=== PATIENT | female | born 2005 | race Two or more races ===

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

== ENCOUNTER 2025-01-02 11:18 | Emergency (ER) | payer MEDICAID, SELFPAY ==
[2025-01-02 11:47] VITALS: BP 106/73; PULSE 106; RESP 18; TEMP 38.2; O2SAT 97; BMI 17.6
--- NOTE | 2025-01-02 11:52 | PD.EDDENTL ---
ED Dental RME/HPI General Chief complaint: Dental/Oral/Throat Stated complaint: SORE THROAT Time Seen by Provider: 01/02/25 11:24 Arrival date/time: 01/02/25 11:18 RME / HPI RME / HPI Narrative: 19-year-old female patient came in for evaluation regarding worsening sore throat. Has been ongoing for the last 4 days associated with fever. And painful swallowing. Denies any cough denies any other complaint. Related Data Home Medications ?Medication ?Instructions ?Recorded ?Confirmed ferrous sulfate 325 mg (65 mg 325 mg PO QDAY 09/16/23 10/21/23 iron) tablet Previous Rx's ?Medication ?Instructions ?Recorded ibuprofen 600 mg tablet 600 mg PO Q6H PRN pain #20 tabs 10/21/23 amoxicillin 875 mg-potassium 1 tab PO Q12H #10 tabs 10/23/23 clavulanate 125 mg tablet ibuprofen 600 mg tablet 600 mg PO Q6H #30 tabs 11/17/24 amoxicillin 875 mg-potassium 1 tab PO BID #14 tabs 01/02/25 clavulanate 125 mg tablet ibuprofen 600 mg tablet 600 mg PO Q8H PRN pain #30 tabs 01/02/25 Allergies Allergy/AdvReac Type Severity Reaction Status Date / Time No Known Allergies Allergy Verified 11/17/24 09:52 Review of Systems Review of Systems Narrative Review of Systems: Review of system reviewed and within normal limits except mentioned in HPI ED Exam Narrative Physical exam: VITAL SIGNS: Reviewed. GENERAL APPEARANCE: Alert and interactive, follows commands, no acute distress, HEAD AND FACE: Non-traumatic. ENT: PERRL, pink conjunctivitis, eyelid no trauma, Mucous membrane moist. Exudates noted on the right side of the tonsil, uvula in the midline peritonsillar area no swelling NECK: Supple, nontender, no nuchal rigidity. CHEST: No tenderness, no crepitus, no paradoxical movement, no retractions. LUNGS: Clear, well ventilated, symmetric, no rales, no wheezing, no ronchi, no stridor, good breath sounds bilaterally. HEART: Regular rate, regular rhythm, no murmur, no gallops. ABDOMEN: Soft, positive bowel sounds, nondistended, no guarding, nontender, no rebound, no masses, RECTAL: Deferred. GENITAL: Deferred. NEUROLOGICAL: Gross motor function intact sensory function intact, Appropriate for age. MUSCULOSKELETAL: low back nontender, full range of motion. EXTREMITIES: Nontender, full range of motion. SKIN: Color pink, dry, no rash, no lacerations, no abrasions, no contusions. LYMPHATICS: Deferred. Course Quality Measures none Orders Category Date Time Status Amoxicillin/Pot Clav 875 [Augmentin 875] Med 01/02/25 11:49 Discontinued 1 tab PO X1 ONE Ibuprofen Tab [Motrin Tab] Med 01/02/25 11:49 Discontinued 600 mg PO X1 ONE Vital Signs Vital signs: Vital Signs Temperature 100.7 F H 01/02/25 11:47 Pulse Rate 106 H 01/02/25 11:47 Respiratory Rate 18 01/02/25 11:47 Blood Pressure 106/73 01/02/25 11:47 Pulse Oximetry (%) 97 01/02/25 11:47 Oxygen Delivery Method Room Air 01/02/25 11:47 Dental / Oral MDM Narrative MDM Narrative:: 19-year-old female patient came in for evaluation regarding worsening sore throat. Has been ongoing for the last 4 days associated with fever. And painful swallowing. Denies any cough denies any other complaint. Patient was given Augmentin and Motrin. Patient is having exudative tonsillitis Patient appears nontoxic and hemodynamically stable. Patient discharged home and instructed to follow-up with primary care provider in 24 to 48 hours. Instructed to return to the emergency department immediately if worsening of symptoms Patient data External records reviewed:: None Clinical information provided by:: patient Social determinants that could affect healthcare access:: none Patient has the following chronic illnesses:: None How is presenting disease/condition affected by chronic disease/condition?: no chronic disease Evaluation data The following diagnostics were reviewed and interpreted by me:: other (specify) Lab and/or radiology exams considered but not ordered:: None Interpretation Summary: None Medications / Prescriptions Medications or Prescriptions considered but not ordered:: none Medication administrations:: Medication Administration History Discontinued Medications Amoxicillin/Clavulanate Potassium (Amoxicillin/Pot Clav 875 Tablet) 1 tab PO X1 ONE Stop: 01/02/25 11:50 Ibuprofen (Ibuprofen Tab 600 Mg Tablet) 600 mg PO X1 ONE Stop: 01/02/25 11:50 Augmentin Motrin Consultations Consultation(s) initiated? (list below): No Diagnosis Dental Differential Diagnosis: dental caries and dental abscess Most likely diagnosis given after review of the tests above:: Exudative tonsillitis Admission Indicated Admission indicated?: not indicated Admission Request Was there a request for admission?: No Disposition Plan Disposition Plan: Discharge Discharge Attestation Discharge Attestation: The patient was given an opportunity to ask questions and understood the discharge instructions. Discharge instructions specifically effects, indications for sooner follow up or return to the emergency department, and the expected course of current diagnosis. Patient condition: Stable Discharge Plan Plan Patient Disposition: HOME (Self Care) Discharge Disposition comment: Stable Prescriptions/Referrals Prescriptions/Med Rec: New amoxicillin-pot clavulanate 875-125 mg tablet 1 tab PO BID Qty: 14 0RF ibuprofen 600 mg tablet 600 mg PO Q8H PRN (Reason: pain) Qty: 30 0RF No Action ibuprofen 600 mg tablet 600 mg PO Q6H PRN (Reason: pain) Qty: 20 0RF amoxicillin-pot clavulanate 875-125 mg tablet 1 tab PO Q12H Qty: 10 0RF ferrous sulfate 325 mg (65 mg iron) tablet 325 mg PO QDAY Patient Comments: TAKE 1 TABLET BY MOUTH TWICE A DAY ibuprofen 600 mg tablet 600 mg PO Q6H Qty: 30 0RF Problem List Clinical Impression: Exudative tonsillitis Patient/Caregiver Discharge Instructions Discharge Activity: activity as tolerated Education Materials: ED Tonsillitis (Child) Additional Instructions: Thank you for the opportunity for serving you today. You are stable for discharged . You are advised to: Follow-up with your PCP in 1 to 2 days Return to ED for worsening of symptoms Increase oral fluids Take medication as prescribed Print Language: Lebanese Stand Alone Forms: Jessica Award Info., Patient Portal Info Letter
[2025-01-02] MEDS: IBUPROFEN TAB 600 MG TABLET PO (11:57)
[2025-01-02] MEDS: AMOXICILLIN/POT CLAV 875 TABLET 1 TAB PO (11:57)
== END 2025-01-02 13:23 | disposition home or self-care (01) ==
PROVIDERS: Emergency Provider Emergency Medicine
DX: J03.90 Acute tonsillitis, unspecified (principal)
CPT/HCPCS: 99282; A9270

== ENCOUNTER 2025-03-04 13:32 | Emergency (ER) | payer MEDICAID, SELFPAY ==
[2025-03-04 13:33] VITALS: BMI 17.2
[2025-03-04 13:46] VITALS: BP 119/73; PULSE 76; RESP 17; TEMP 38.1; O2SAT 97
--- NOTE | 2025-03-04 13:58 | XR_ITS ---
Examination: Complete OB ultrasound, less than 14 weeks, transabdominal Date and time of exam: March 04, 2025 1449 hours INDICATIONS: Vaginal bleeding beginning 2 weeks ago Technique: Obstetrical ultrasound images less than 14 weeks performed via transabdominal imaging Findings: Uterus 7.2 cm, no uterine mass or intrauterine gestation Endometrial stripe 1.5 cm Right ovary 3.3 cm arterial flow Left ovary 3.9 cm arterial flow IMPRESSION: No uterine mass or intrauterine gestation No adnexal mass
--- NOTE | 2025-03-04 14:00 | PD.EDRME ---
Rapid Medical Screening Exam E Arrival date/time: 03/04/25 13:32 19-year-old female with no known medical history presents to the emergency room with a chief complaint of vaginal bleeding dysuria and abdominal cramping. Patient is currently 4 weeks I have greeted and performed a focused initial assessment of this patient. A comprehensive ED assessment and evaluation of the patient, analysis of all test results, and completion of the medical decision making process will be conducted by additional ED providers. Chief Complaint: Vaginal Bleeding Vital signs: Vital Signs Temperature 100.5 F H 03/04/25 13:46 Pulse Rate 76 03/04/25 13:46 Respiratory Rate 17 03/04/25 13:46 Blood Pressure 119/73 03/04/25 13:46 Pulse Oximetry (%) 97 03/04/25 13:46 Oxygen Delivery Method Room Air 03/04/25 13:46 Vital signs reviewed by provider: Yes
[2025-03-04] MEDS: ACETAMINOPHEN 325 MG TABLET 650 MG PO (14:43)
[2025-03-04 15:33] LABS: Basophils # (Auto) 0.1 Thou/mm3 (0.0-0.2); Basophils % (Auto) 1 % (0-2.5); Eosinophils # (Auto) 0.4 Thou/mm3 (0.0-0.5); Eosinophils % (Auto) 4 % (0-10); Hematocrit 37.1 % (36.0-46.0); Hemoglobin 12.9 g/dL (12.0-16.0); Immature Granulocytes Auto 0.03 Thou/mm3 (0.00-0.00); Lymphocytes # (Auto) 1.8 Thou/mm3 (1.0-5.0); Lymphocytes % (Auto) 17 % (10-50); Mean Corpuscular HGB Conc 34.8 g/dl (31.0-37.0); Mean Corpuscular Hemoglobin 31.2 pg (25.0-35.0); Mean Corpuscular Volume 90 fL (80-100); Monocytes # (Auto) 0.8 Thou/mm3 (0.0-0.8); Monocytes % (Auto) 8 % (0-12); Neutrophils # (Auto) 7.2 Thou/mm3 (1.8-7.7); Neutrophils % (Auto) 70 % (37-80); Nucleated Red Blood Cell # 0.00 Thou/mm3 (0.00-0.00); Nucleated Red Blood Cell % 0 /100 WBC (0); Platelet Count 231 Thou/mm3 (140-440); RDW Standard Deviation 39.7 fL (36.4-46.3); Red Blood Count 4.13 Miln/mm3 (4.00-5.20); White Blood Count 10.3 Thou/mm3 (4.5-11.0)
[2025-03-04 15:46] LABS: Collection Type, Urine Clean Catch
[2025-03-04 16:09] LABS: Bacteria,Urine Rare; Bilirubin,Urine Negative (Negative); Blood,Urine Negative (Negative); Clarity,Urine Clear (Clear/Hazy); Color,Urine Yellow (Lt Yel-Yel); Glucose, Urine Negative (Negative); Ketones,Urine Negative (Negative); Leukocyte Esterase,Urine Negative (Negative); Nitrite,Urine Negative (Negative); PH,Urine 6.5 (5.0-7.0); Protein,Urine Negative (Neg - Trace); RBC,Urine 6 /hpf (0-3); Specific Gravity,Urine 1.029 (1.001-1.035); Squamous Epithelial Cell,Urine 9 /hpf (0-5); Urobilinogen,Urine Negative mg/dL (0.0-1.0); WBC,Urine 1 /hpf (0-5)
[2025-03-04 16:20] LABS: Alanine Aminotransferase 13 U/L (10-49); Albumin, Serum 4.8 gm/dL (3.5-5.0); Albumin/Globulin Ratio 1.8 (1.2-2.2); Alkaline Phosphatase 47 U/L (46-116); Anion Gap 8 (7-16); Aspartate Amino Transferase 24 U/L (0-34); BUN/Creatinine Ratio 12 Ratio (12-20); Beta HCG,Quantitative 73 mIU/mL (<5.0); Bilirubin,Total 0.7 mg/dL (0.3-1.2); Blood Urea Nitrogen 7 mg/dL (9-23); Calcium 9.7 mg/dL (8.3-10.6); Calcium (Corrected) 9.7 mg/dL (8.5-10.1); Carbon Dioxide 24.0 mMol/L (20.0-31.0); Chloride 108 mMol/L (98-107); Creatinine (Component) 0.6 mg/dL (0.6-1.3); Estimated Creatinine Clearance 104.7 mL/min (>60); Globulin 2.6 gm/dL (2.3-3.5); Glucose 87 mg/dL (74-106); Osmolality,Calculated 276 (275-295); Potassium 4.5 mMol/L (3.4-5.1); Sodium 140 mMol/L (136-145); Total Protein 7.4 gm/dL (5.7-8.2); eGFR > 60 See Note
[2025-03-04 17:14] VITALS: BP 102/62; PULSE 84; RESP 16; TEMP 36.8; O2SAT 98
--- NOTE | 2025-03-04 17:14 | PD.EDVAGBL ---
ED OB Contraction Preg RMI/HPI General Chief complaint: Vaginal Bleeding Stated complaint: VAGINAL BLEEDING WEEKS GESTATION Time Seen by Provider: 03/04/25 17:02 Arrival date/time: 03/04/25 13:32 Limitations: no limitations RME / HPI RME / HPI Narrative: Patient is a 19-year-old female who believes she is approximately 4 weeks based on her last menstrual cycle. She has developed some intermittent vaginal bleeding over the last 2 weeks. She denies any weakness or near syncope. She has no fevers or chills. She has no chest pain. She denies any abdominal pain, nausea, vomiting. She has no current pelvic pain. She has no other acute complaints She is a0. Related Data Home Medications ?Medication ?Instructions ?Recorded ?Confirmed ferrous sulfate 325 mg (65 mg 325 mg PO QDAY 09/16/23 10/21/23 iron) tablet Previous Rx's ?Medication ?Instructions ?Recorded ibuprofen 600 mg tablet 600 mg PO Q6H PRN pain #20 tabs 10/21/23 amoxicillin 875 mg-potassium 1 tab PO Q12H #10 tabs 10/23/23 clavulanate 125 mg tablet ibuprofen 600 mg tablet 600 mg PO Q6H #30 tabs 11/17/24 amoxicillin 875 mg-potassium 1 tab PO BID #14 tabs 01/02/25 clavulanate 125 mg tablet ibuprofen 600 mg tablet 600 mg PO Q8H PRN pain #30 tabs 01/02/25 Allergies Allergy/AdvReac Type Severity Reaction Status Date / Time No Known Allergies Allergy Verified 03/04/25 13:35 Review of Systems Review of Systems Systems Reviewed: All systems reviewed, normal except as documented ED Exam General Limitations: Present no limitations General appearance: Present alert and in no apparent distress Head Head exam: Present atraumatic Eye Eye exam: Present normal appearance, PERRL and EOMI ENT ENT exam: Present normal exam, normal oropharynx and mucous membranes moist Neck Neck exam: Present normal inspection, full ROM and trachea midline Chest Chest inspection: Present normal inspection and symmetric chest wall rise Respiratory Respiratory exam: Present normal lung sounds bilaterally Cardiovascular Cardiovascular exam: Present regular rate, normal rhythm and normal heart sounds Abdominal Exam Abdominal exam: Present soft and normal bowel sounds Extremities Exam Extremities exam: Present normal inspection and full ROM Back Exam Back exam: Present normal inspection and full ROM Neurological Exam Neurological exam: Present alert, oriented X3 and CN II-XII intact Psychiatric Psychiatric exam: Present normal affect and normal mood Skin Skin exam: Present warm, dry, intact and normal color Course Quality Measures none Orders Category Date Time Status US OB <= 14 weeks fetus Stat Exams 03/04/25 13:58 Completed ABO/RH Type Stat Lab 03/04/25 15:14 Completed Beta HCG,Quantitative Stat Lab 03/04/25 15:14 Completed CBC Stat Lab 03/04/25 15:14 Completed CMP [Comprehensive Metabolic Panel] Stat Lab 03/04/25 15:14 Completed UA [Urinalysis] Stat Lab 03/04/25 15:25 Completed Acetaminophen Tab [Tylenol Tab] Med 03/04/25 13:58 Discontinued 650 mg PO X1 ONE Vital Signs Vital signs: Vital Signs Temperature 100.5 F H 03/04/25 13:46 Pulse Rate 76 03/04/25 13:46 Respiratory Rate 17 03/04/25 13:46 Blood Pressure 119/73 03/04/25 13:46 Pulse Oximetry (%) 97 03/04/25 13:46 Oxygen Delivery Method Room Air 03/04/25 13:46 Vaginal Bleeding MDM Narrative MDM Narrative: 89-year-old female here to the early and vaginal bleeding. Her hCG levels are low and there is no ultrasonic evidence of a intrauterine . Ectopic has not been ruled out. This is discussed in great detail. Patient agrees to follow-up in clinic after 3 days for close recheck. We discussed return precautions. She is return as needed for any pelvic pain, nausea, vomiting, or any fevers. Patient data External records reviewed:: None Clinical information provided by:: patient Social determinants that could affect healthcare access:: none Patient has the following chronic illnesses:: n/a How is presenting disease/condition affected by chronic disease/condition?: no chronic disease Evaluation data The following diagnostics were reviewed and interpreted by me:: lab results (You have your hCG level is 73, workup was otherwise unremarkable.) and radiology exam(s) (No radiographic evidence of intrauterine gestation or evidence of ectopic ) Lab and/or radiology exams considered but not ordered:: n/a Interpretation Summary: Threatened miscarriage Medications / Prescriptions Medications or Prescriptions considered but not ordered:: n/a Medication administrations:: Medication Administration History Discontinued Medications Acetaminophen (Acetaminophen 325 Mg Tablet) 650 mg PO X1 ONE Stop: 03/04/25 13:59 Last Admin: 03/04/25 14:43 Dose: 650 mg Documented By: see above Consultations Consultation(s) initiated? (list below): No Diagnosis Vaginal Bleeding Differential Diagnosis: missed , threatened , dysfunctional uterine bleeding, menometrorrhagia and incomplete Most likely diagnosis given after review of the tests above:: Threatened miscarriage Admission Indicated Admission indicated?: not indicated Admission Request Was there a request for admission?: No Disposition Plan Disposition Plan: Discharge Discharge Attestation Discharge Attestation: The patient and all family members were given an opportunity to ask questions and understood the discharge instructions. Discharge instructions specifically effects, indications for sooner follow up or return to the emergency department, and the expected course of current diagnosis. Patient condition: Stable Discharge Plan Plan Patient Disposition: Home w/HOME HEALTH Patient condition on transfer: Stable Prescriptions/Referrals Prescriptions/Med Rec: No Action ibuprofen 600 mg tablet 600 mg PO Q6H PRN (Reason: pain) Qty: 20 0RF amoxicillin-pot clavulanate 875-125 mg tablet 1 tab PO Q12H Qty: 10 0RF amoxicillin-pot clavulanate 875-125 mg tablet 1 tab PO BID Qty: 14 0RF ibuprofen 600 mg tablet 600 mg PO Q8H PRN (Reason: pain) Qty: 30 0RF ferrous sulfate 325 mg (65 mg iron) tablet 325 mg PO QDAY Patient Comments: TAKE 1 TABLET BY MOUTH TWICE A DAY ibuprofen 600 mg tablet 600 mg PO Q6H Qty: 30 0RF Referrals: Gunner Judge MD [Primary Care Provider] - In 1 week Problem List Clinical Impression: Miscarriage, threatened, early Patient/Caregiver Discharge Instructions Education Materials: ED Possible Miscarriage ... Additional Instructions: -Maintain oral hydration. Use tylenol as needed. Avoid ibuporfen. -Have your HCG levels rechecked after 3 days, your HCG level today is 73. -Please return to the ER at any time for any severe pain, fevers, nausea, or vomiting. Print Language: Panamanian Stand Alone Forms: Jessica Award Info., Patient Portal Info Letter
== END 2025-03-04 18:06 | disposition home or self-care (01) ==
PROVIDERS: Nurse Practitioner Family; Emergency Provider Family Medicine; PCP Family Medicine
DX: O20.0 Threatened abortion (principal); Z3A.01 Less than 8 weeks gestation of pregnancy
CPT/HCPCS: 36415; 76801; 80053; 81001; 84702; 85025; 86900; 86901; 99284; A9270

== ENCOUNTER 2025-03-08 16:52 | Emergency (ER) | payer MEDICAID, SELFPAY ==
[2025-03-08 16:52] VITALS: BMI 17.3
--- NOTE | 2025-03-08 17:01 | XR_ITS ---
Examination: OB Transvaginal ultrasound of the pelvis, complete Technique: Transvaginal sonographic images pelvis performed using love scale imaging Exam date and time: March 08, 2025, 1714 hours INDICATIONS: Vaginal bleeding today FINDINGS: Uterus 8.1 cm Questionable intrauterine gestational sac 0.2 cm No pole, no cardiac activity No uterine mass Right ovary 2.6 cm arterial flow Left ovary 3.9 cm arterial flow, follicular cysts Left ovary cystic solid mass 20 x 18 x 18 mm peripheral vascularity IMPRESSION: Questionable intrauterine gestational sac 0.2 cm Left ovary cystic solid mass 20 x 18 x 18 mm with peripheral vascularity, differential would include ectopic , the appearance should clinically correlated and short term follow-up transvaginal pelvic sonograms strongly recommended.
[2025-03-08 17:56] LABS: Collection Type, Urine Clean Catch
[2025-03-08] MEDS: SODIUM CHLORIDE 0.9% 1000 ML 1,000 ML 999 ML IV (18:09)
[2025-03-08 18:24] LABS: Bilirubin,Urine Negative (Negative); Blood,Urine Trace (Negative); Clarity,Urine Turbid (Clear/Hazy); Color,Urine Yellow (Lt Yel-Yel); Glucose, Urine Negative (Negative); Ketones,Urine Negative (Negative); Leukocyte Esterase,Urine Negative (Negative); Nitrite,Urine Negative (Negative); PH,Urine 6.5 (5.0-7.0); Protein,Urine Trace (Neg - Trace); RBC,Urine 23 /hpf (0-3); Specific Gravity,Urine 1.033 (1.001-1.035); Squamous Epithelial Cell,Urine 22 /hpf (0-5); Urobilinogen,Urine Negative mg/dL (0.0-1.0); WBC,Urine 2 /hpf (0-5)
--- NOTE | 2025-03-08 18:32 | PD.EDPREG ---
ED OB Contraction Preg RMI/HPI General Chief complaint: Urogenital-Female Stated complaint: NEED HCG LEVEL CHECK, SEEN 3 DAYS AGO Time Seen by Provider: 03/08/25 17:50 Arrival date/time: 03/08/25 16:52 This is a case of 19-year-old female who came into the emergency room due to abdominal pain nausea vomiting patient is 4 weeks 1 para 0 here history of present illness started yesterday when the patient started to have cramping abdominal pain with 2 episodes of nonprojectile vomiting no diarrhea no constipation persistence of the symptoms this patient decided to start consult here in the emergency room Related Data Home Medications ?Medication ?Instructions ?Recorded ?Confirmed ferrous sulfate 325 mg (65 mg 325 mg PO QDAY 09/16/23 10/21/23 iron) tablet Previous Rx's ?Medication ?Instructions ?Recorded ibuprofen 600 mg tablet 600 mg PO Q6H PRN pain #20 tabs 10/21/23 amoxicillin 875 mg-potassium 1 tab PO Q12H #10 tabs 10/23/23 clavulanate 125 mg tablet ibuprofen 600 mg tablet 600 mg PO Q6H #30 tabs 11/17/24 amoxicillin 875 mg-potassium 1 tab PO BID #14 tabs 01/02/25 clavulanate 125 mg tablet ibuprofen 600 mg tablet 600 mg PO Q8H PRN pain #30 tabs 01/02/25 Allergies Allergy/AdvReac Type Severity Reaction Status Date / Time No Known Allergies Allergy Verified 03/08/25 16:55 Course Orders Category Date Time Status Insert [Insert IV] NOW Care 03/08/25 17:00 Active US OB transvaginal Stat Exams 03/08/25 17:01 Taken Beta HCG,Quantitative Stat Lab 03/08/25 16:59 Ordered CBC Stat Lab 03/08/25 16:58 Ordered CMP [Comprehensive Metabolic Panel] Stat Lab 03/08/25 18:31 Ordered Partial Thromboplastin Time Stat Lab 03/08/25 17:00 Ordered Prothrombin Time with INR Stat Lab 03/08/25 17:00 Ordered Type and Screen Stat Lab 03/08/25 16:59 Ordered Urinalysis Stat Lab 03/08/25 17:15 Completed Urinalysis Stat Lab 03/08/25 18:31 Ordered Sodium Chloride 0.9% 1000 ml [Ns] 1,000 ml Med 03/08/25 17:00 Discontinued IV 999 mls/hr OB/Uterine Contractions Medications / Prescriptions Medication administrations:: Medication Administration History Discontinued Medications Sodium Chloride (Ns) 1,000 mls @ 999 mls/hr IV .Q1H1M ONE Stop: 03/08/25 18:00 Last Admin: 03/08/25 18:09 Dose: 999 mls/hr Documented By: KO Discharge Plan Prescriptions/Referrals Prescriptions/Med Rec: No Action ibuprofen 600 mg tablet 600 mg PO Q6H PRN (Reason: pain) Qty: 20 0RF amoxicillin-pot clavulanate 875-125 mg tablet 1 tab PO Q12H Qty: 10 0RF amoxicillin-pot clavulanate 875-125 mg tablet 1 tab PO BID Qty: 14 0RF ibuprofen 600 mg tablet 600 mg PO Q8H PRN (Reason: pain) Qty: 30 0RF ferrous sulfate 325 mg (65 mg iron) tablet 325 mg PO QDAY Patient Comments: TAKE 1 TABLET BY MOUTH TWICE A DAY ibuprofen 600 mg tablet 600 mg PO Q6H Qty: 30 0RF Referrals: Gunner Judge MD [Primary Care Provider] - In 1 week Patient/Caregiver Discharge Instructions Print Language: Syriac
[2025-03-08 18:46] LABS: INR 1.0 (0.9-1.3); Partial Thromboplastin Time 28.5 Seconds (22.0-36.0); Prothrombin Time 11.0 Seconds (9.0-12.2)
[2025-03-08 18:50] LABS: Beta HCG,Quantitative 759 mIU/mL (<5.0)
--- NOTE | 2025-03-08 19:10 | PD.EDFMALE ---
ED Female Urogenital RME/HPI General Chief complaint: Urogenital-Female Stated complaint: NEED HCG LEVEL CHECK, SEEN 3 DAYS AGO Time Seen by Provider: 03/08/25 17:50 Arrival date/time: 03/08/25 16:52 RME / HPI RME / HPI Narrative: This section includes all my notes and documentations, including HPI, PE, and ED course. Darien Farnsworth MD HPI: 19yo female who is ~7 weeks gestation presents to the ED for a chief complaint of left pelvic pain. LMP 02/01/2025. No radiation or migration. No vaginal bleeding, N/V, fever, chills or any other associated symptoms. No other complaints reported. ROS: All negative except as documented in HPI. Physical Exam: General: Alert and oriented. No acute distress when remaining still. Eyes: Conjunctivae and lids clear. ENT: No nasal congestion. Neck: Supple. Heart: RRR. Lungs: No respiratory distress. Good air movement. No rhonchi, wheezing, rales. Abdomen: Soft and nontender. Normal bowel sounds. No distension. No rebound or guarding. Back: No CVA tenderness. Skin: Warm and dry. Neuro: Alert and oriented X 3. I reviewed all diagnostic test results. My review of the transvaginal US report is: - Questionable intrauterine gestational sac 0.2 cm - Left ovary cystic solid mass 20 x 18 x 18 mm with peripheral vascularity. Beta HCG 759. UA shows 23 RBCs. At this point, diagnoses include with uncertain viability. I discussed the case with our SUPERVISOR LIQUEFACTION. About the presentation and exam and diagnostics and treatments here. And possible need of further care in the hospital. Recommended outpatient follow-up tomorrow with them. Discharge Instructions from Dr. Farnsworth printed for you: 1. Our acid washer operator on-call (Dr. Galdamez) saw you and evaluated you. And we followed his instructions. 2. Based on ultrasound, there is no inside the uterus. But there is a mass around the left ovary. This may be ectopic . See attached handouts. 3. Dr Galdamez wants to see you tomorrow for reevaluation. Call the office at [phone] tomorrow morning to make the appointment. 4. Seek immediate medical care with intolerable pain, heavy vaginal bleeding, or with any concerns. Jin Daja, MD Related Data Home Medications ?Medication ?Instructions ?Recorded ?Confirmed ferrous sulfate 325 mg (65 mg 325 mg PO QDAY 09/16/23 10/21/23 iron) tablet Previous Rx's ?Medication ?Instructions ?Recorded amoxicillin 875 mg-potassium 1 tab PO Q12H #10 tabs 10/23/23 clavulanate 125 mg tablet Allergies Allergy/AdvReac Type Severity Reaction Status Date / Time No Known Allergies Allergy Verified 03/08/25 16:55 Review of Systems Review of Systems Systems Reviewed: All systems reviewed, normal except as documented Past Medical History Past Medical History NEUROLOGIC: Negative Neurological Disorders CARDIAC: Negative Cardiac Disorders or Congestive Heart Failure RESPIRATORY: Negative Chronic Obstructive Pulmonary Disease (COPD) GASTROINTESTINAL: Negative Gastrointestinal Disorders GENITOURINARY: Negative Genitourinary Disorders or Renal Disease MUSCULOSKELETAL: Negative Musculoskeletal Disorders ENDOCRINE: Negative Endocrine Disorders, Diabetes Mellitus Type 1 or Diabetes Mellitus Type 2 HEMATOLOGIC: Negative Blood Disorders OTHER HISTORY: Negative Autoimmune Disease, Anesthesia Reactions, MRSA, Clostridium Difficile or Cancer Family History FAMILY HISTORY: Negative Family Cardiac Disorders Surgical History SURGICAL: Negative Endocrine Surgery, Ear Surgery, Abdominal Surgery, Joint Replacement, Neurologic Surgery, Mastectomy or Vasectomy Social History SMOKING STATUS: Never smoker SECOND HAND EXPOSURE: No ED Exam Narrative Physical exam: As noted in HPI. Course Quality Measures none Orders Category Date Time Status Insert [Insert IV] NOW Care 03/08/25 17:00 Active US OB transvaginal Stat Exams 03/08/25 17:01 Completed Beta HCG,Quantitative Stat Lab 03/08/25 18:02 Results CBC Stat Lab 03/08/25 16:58 Ordered Comprehensive Metabolic Panel Stat Lab 03/08/25 18:02 Results Partial Thromboplastin Time Stat Lab 03/08/25 17:00 Ordered Prothrombin Time with INR Stat Lab 03/08/25 17:00 Ordered Type and Screen Stat Lab 03/08/25 18:08 Completed Urinalysis Stat Lab 03/08/25 17:15 Completed Sodium Chloride 0.9% 1000 ml [Ns] 1,000 ml Med 03/08/25 17:00 Discontinued IV 999 mls/hr Urogenital - Female MDM Narrative MDM Narrative:: 19yo female who is ~7 weeks gestation presents to the ED for a chief complaint of left pelvic pain. No radiation or migration. No vaginal bleeding, N/V, fever, chills or any other associated symptoms. No other complaints reported. Patient data External records reviewed:: [facility] previous records (Per chart review, patient was seen here on 03/04/25 for threatened miscarriage.) Clinical information provided by:: patient Social determinants that could affect healthcare access:: none Patient has the following chronic illnesses:: none How is presenting disease/condition affected by chronic disease/condition?: no chronic disease Evaluation data The following diagnostics were reviewed and interpreted by me:: lab results and radiology exam(s) Lab and/or radiology exams considered but not ordered:: none Interpretation Summary: I reviewed all diagnostic test results. My review of the transvaginal US report is: - Questionable intrauterine gestational sac 0.2 cm - Left ovary cystic solid mass 20 x 18 x 18 mm with peripheral vascularity Beta HCG 759. UA shows 23 RBCs. Medications / Prescriptions Medications or Prescriptions considered but not ordered:: none Medication administrations:: Medication Administration History Discontinued Medications Sodium Chloride (Ns) 1,000 mls @ 999 mls/hr IV .Q1H1M ONE Stop: 03/08/25 18:00 Last Admin: 03/08/25 18:09 Dose: 999 mls/hr Documented By: KO None Consultations Consultation(s) initiated? (list below): Yes Consultation #1 (Physician, Specialty, Details): I discussed the case with our SUPERVISOR LIQUEFACTION. About the presentation and exam and diagnostics and treatments here. And possible need of further care in the hospital. Recommended outpatient follow-up tomorrow with them. Diagnosis Urogenital Female Differential Diagnosis: urinary tract infection, cervicitis, ovarian cyst, vaginitis, ruptured ovarian cyst, cystitis, dysmenorrhea and other (Ectopic , IUP, incomplete AB, threatened AB) Most likely diagnosis given after review of the tests above:: with uncertain viability Admission Indicated Admission indicated?: not indicated Explain why admission is indicated or not indicated:: I discussed the case with our SUPERVISOR LIQUEFACTION. About the presentation and exam and diagnostics and treatments here. And possible need of further care in the hospital. Recommended outpatient follow-up tomorrow with them. Admission Request Was there a request for admission?: No Disposition Plan Disposition Plan: Discharge Discharge Attestation Discharge Attestation: The patient and all family members were given an opportunity to ask questions and understood the discharge instructions. Discharge instructions specifically effects, indications for sooner follow up or return to the emergency department, and the expected course of current diagnosis. Patient condition: Stable Discharge Plan Plan Patient Disposition: HOME (Self Care) Patient condition on transfer: Stable Prescriptions/Referrals Prescriptions/Med Rec: Continued amoxicillin-pot clavulanate 875-125 mg tablet 1 tab PO Q12H Qty: 10 0RF ferrous sulfate 325 mg (65 mg iron) tablet 325 mg PO QDAY Patient Comments: TAKE 1 TABLET BY MOUTH TWICE A DAY Discontinued ibuprofen 600 mg tablet 600 mg PO Q6H PRN (Reason: pain) Qty: 20 0RF amoxicillin-pot clavulanate 875-125 mg tablet 1 tab PO BID Qty: 14 0RF ibuprofen 600 mg tablet 600 mg PO Q8H PRN (Reason: pain) Qty: 30 0RF ibuprofen 600 mg tablet 600 mg PO Q6H Qty: 30 0RF Referrals: Gunner Judge MD [Primary Care Provider] - In 1 week Problem List Clinical Impression: with uncertain viability Patient/Caregiver Discharge Instructions Discharge Activity: activity as tolerated Other Activity Instructions:: Follow-up with Dr Galdamez's office tomorrow. Call [phone] at 9:00 am Education Materials: Ectopic , ED Abdominal Pain, Early , ED Methotrexate for Ectopic ..., ED Possible Miscarriage ... Additional Instructions: Discharge Instructions from Dr. Farnsworth printed for you: 1. Our acid washer operator on-call (Dr. Galdamez) saw you and evaluated you. And we followed his instructions. 2. Based on ultrasound, there is no inside the uterus. But there is a mass around the left ovary. This may be ectopic . See attached handouts. 3. Dr Galdamez wants to see you tomorrow for reevaluation. Call the office at [phone] tomorrow morning to make the appointment. 4. Seek immediate medical care with intolerable pain, heavy vaginal bleeding, or with any concerns. Print Language: Bengali Stand Alone Forms: Jessica Award Info., Patient Portal Info Letter
--- NOTE | 2025-03-08 19:41 | PD.GYNCONS ---
MACHINE ASSEMBLER SUPERVISOR HPI Data of Consult Primary Care Provider: Gunner Judge MD Consult Narrative History of present illness: 19-year-old 1 para 0 with unsure LMP has hCG level of 750 and transvaginal ultrasound suggesting possible left tubal ectopic versus corpus luteal cyst and possible early intrauterine gestational sac. Patient reports that her pain is mild and instead of undergoing a diagnostic laparoscopy she would rather follow-up as an outpatient and see if eventually an ectopic is diagnosed she would prefer medical treatment with methotrexate instead of surgery. cc:: cc: Meds Home Medications and Allergies Home Medications ?Medication ?Instructions ?Recorded ?Confirmed ?Type ferrous sulfate 325 mg (65 mg 325 mg PO QDAY 09/16/23 10/21/23 History iron) tablet Allergies Allergy/AdvReac Type Severity Reaction Status Date / Time No Known Allergies Allergy Verified 03/08/25 16:55 MACHINE ASSEMBLER SUPERVISOR - Results Labs 03/08/25 18:02 Labs: Urine 03/08/25 Range/Units 17:15 Urine Color Yellow (Lt Yel-Yel) Urine Clarity Turbid A (Clear/Hazy) Urine pH 6.5 (5.0-7.0) Ur Specific [place] 1.033 (1.001-1.035) Urine Protein Trace (Neg - Trace) Urine Glucose (UA) Negative (Negative) Impressions Impression: Early with questionable viability Early intrauterine versus ectopic A combined would be unusual Plan is discharge home Follow-up in my office tomorrow I will follow serial hCGs as an outpatient And repeat transvaginal ultrasound when hCG is over 3000 Patient was notified to return immediately to the emergency room with severe pain, heavy vaginal bleeding, dizziness or lightheadedness.
[2025-03-08 19:57] LABS: Alanine Aminotransferase 13 U/L (10-49); Albumin, Serum 5.1 gm/dL (3.5-5.0); Albumin/Globulin Ratio 2.0 (1.2-2.2); Alkaline Phosphatase 48 U/L (46-116); Anion Gap 11 (7-16); Aspartate Amino Transferase 23 U/L (0-34); BUN/Creatinine Ratio 11 Ratio (12-20); Bilirubin,Total 0.8 mg/dL (0.3-1.2); Blood Urea Nitrogen 8 mg/dL (9-23); Calcium 10.1 mg/dL (8.3-10.6); Calcium (Corrected) 10.1 mg/dL (8.5-10.1); Carbon Dioxide 22.6 mMol/L (20.0-31.0); Chloride 108 mMol/L (98-107); Creatinine (Component) 0.7 mg/dL (0.6-1.3); Estimated Creatinine Clearance 90.7 mL/min (>60); Globulin 2.6 gm/dL (2.3-3.5); Glucose 96 mg/dL (74-106); Osmolality,Calculated 281 (275-295); Potassium 4.1 mMol/L (3.4-5.1); Sodium 142 mMol/L (136-145); Total Protein 7.7 gm/dL (5.7-8.2); eGFR > 60 See Note
== END 2025-03-08 20:22 | disposition home or self-care (01) ==
PROVIDERS: Family Medicine; Emergency Provider Emergency Medicine; PCP Family Medicine
DX: O36.80X0 Pregnancy with inconclusive fetal viability, not applicable or unspecified (principal); Z3A.01 Less than 8 weeks gestation of pregnancy; O34.81 Maternal care for other abnormalities of pelvic organs, first trimester; N83.202 Unspecified ovarian cyst, left side
CPT/HCPCS: 36415; 76817; 80048; 80053; 81001; 84702; 85025; 85610; 85730; 86850; 86900; 86901; 96360; 96361; 99284; J7030

== ENCOUNTER 2025-08-19 16:25 | Outpatient (CLI) | payer MEDICAID, SELFPAY ==
[2025-08-19] VITALS (8 sets, daily range): BP systolic 91; BP diastolic 54; PULSE 83–93; RESP 18–99; TEMP 36.6; O2SAT 98–99
== END 2025-08-19 17:10 | disposition home or self-care (01) ==
LOC: S4S1 16:28 → S4SX 16:42
PROVIDERS: Referring Provider Obstetrics & Gynecology; Visit Provider Obstetrics & Gynecology
DX: Z34.83 Encounter for supervision of other normal pregnancy, third trimester (principal); Z3A.28 28 weeks gestation of pregnancy
CPT/HCPCS: 59025

== ENCOUNTER 2025-08-22 04:04 | Emergency (ER) | payer MEDICAID, SELFPAY ==
[2025-08-22 04:05] VITALS: BMI 22.1
[2025-08-22 04:11] VITALS: BP 110/71; PULSE 127; RESP 19; TEMP 37.7; O2SAT 98
--- NOTE | 2025-08-22 04:21 | XR_ITS ---
Examination: Complete OB ultrasound greater than 14 weeks Date and time of exam: August 22, 2025, 0509 hours INDICATIONS: Onset pelvic pain today Findings: Viable intrauterine single fetus with single amniotic sac presentation cephalic Cardiac motion 138 bpm Placenta anterior grade 1 Umbilical cord insertion seen Amniotic fluid pocket 3.7 cm is the deepest pocket Cervix 2.7 cm Ovaries obscured by bowel gas Composite estimated gestational age based on BPD, head circumference, abdominal circumference, femur length is 27 weeks 6 days Estimated weight 1075 g. Survey of intracranial anatomy, spinal anatomy, abdominal anatomy, four-chamber heart performed with no abnormalities identified. Impression: Viable intrauterine gestation cephalic presentation.
--- NOTE | 2025-08-22 04:23 | EKG_ITS ---
[facility] Test Date: 2025-08-22 Pat Name: KENNETH RICH Department: Room: - Gender: Female Director [employer]: : 2005 Requested By: Guero Crawford Order Number: [id number] Reading MD: Guero Crawford Measurements Intervals [place] Rate: 113 P: 72 SC: 138 QRS: 99 QRSD: 86 T: 24 QT: 299 QTc: 411 Interpretive Statements SINUS TACHYCARDIA POSSIBLE LEFT ATRIAL ENLARGEMENT [-0.1mV P-WAVE IN V1/V2] BORDERLINE RIGHT AXIS DEVIATION [QRS AXIS > 90] ABNORMAL RHYTHM ECG No previous ECG available for comparison /store/S0/[id number]/[id number].pdf
--- NOTE | 2025-08-22 04:23 | PD.EDRME ---
Rapid Medical Screening Exam RME Arrival date/time: 08/22/25 04:04 This is a case of 20-year-old female who came in in the emergency room due to chest pain cough nasal congestion and shortness of breath for 3 days patient is 29 weeks 2 para 1 no vaginal bleeding vaginal discharge abdominal pain Chief Complaint: Flu Like Symptoms Time Seen by Provider: 08/22/25 04:21 Vital signs: Vital Signs Temperature 100 F 08/22/25 04:11 Pulse Rate 127 H 08/22/25 04:11 Respiratory Rate 19 08/22/25 04:11 Blood Pressure 110/71 08/22/25 04:11 Pulse Oximetry (%) 98 08/22/25 04:11 Oxygen Delivery Method Room Air 08/22/25 04:11 Exam: Gravid uterus wheezing both lower lung field no crackles no rales no retraction no stridor Clinical Impression: Chest pain
[2025-08-22] MEDS: ALBUTEROL/IPRATROPIUM (Duoneb) RT SOL 3 ML NEBU INH (04:54)
[2025-08-22 04:55] VITALS: PULSE 134; RESP 20; O2SAT 99
[2025-08-22 05:27] LABS: Collection Type, Urine Voided
[2025-08-22 05:31] LABS: Amorphous Crystals,Urine Present (Absent); Bacteria,Urine Rare; Bilirubin,Urine Negative (Negative); Blood,Urine Negative (Negative); Clarity,Urine Clear (Clear/Hazy); Color,Urine Colorless (Lt Yel-Yel); Glucose, Urine Negative (Negative); Ketones,Urine Negative (Negative); Leukocyte Esterase,Urine Positive (Negative); Nitrite,Urine Negative (Negative); PH,Urine 7.5 (5.0-7.0); Protein,Urine Negative (Neg - Trace); RBC,Urine 2 /hpf (0-3); Specific Gravity,Urine 1.008 (1.001-1.035); Squamous Epithelial Cell,Urine 6 /hpf (0-5); Urobilinogen,Urine Negative mg/dL (0.0-1.0); WBC,Urine 2 /hpf (0-5)
--- NOTE | 2025-08-22 06:05 | PRELIM_ITS ---
Obstetric ultrasound. August 22, 2025 0509 hours Clinical history: vaginal bleeding Findings: There is a gravid uterus with a live fetus in cephalicpresentation of mean gestational age 28weeks and 6days (by biometry). cardiac activity is present at a heart rate of 138beats per minute. The placenta is anteriorin location, maturity grade I. There is no evidence of placenta previa or r etroplacental hemorrhage. Amniotic fluid is measuring3.7cm). Estimated weight is 1015.3grams+/- 159grams. Estimated due date by ultrasound is 11/08/2025The cervical length measuring 2.7cm. Both ovaries are not visualized due to bowel gas. Impression: Gravid uterus with a single live fetus in cephalicpresentation of mean gestational age 27weeks 6days. ADI of 3.7 cm suspicious for oligohydramnios. Report Electronically Signed By: Alicia Monzon 08/22/2025 6:04:36 AM [EST]
[2025-08-22 06:21] LABS: Basophils # (Auto) 0.0 Thou/mm3 (0.0-0.2); Basophils % (Auto) 0 % (0-2.5); Eosinophils # (Auto) 0.1 Thou/mm3 (0.0-0.5); Eosinophils % (Auto) 1 % (0-10); Hematocrit 30.9 % (36.0-46.0); Hemoglobin 10.5 g/dL (12.0-16.0); Immature Granulocytes Auto 0.25 Thou/mm3 (0.00-0.00); Lymphocytes # (Auto) 1.0 Thou/mm3 (1.0-4.8); Lymphocytes % (Auto) 9 % (10-50); Mean Corpuscular HGB Conc 34.0 g/dl (31.0-37.0); Mean Corpuscular Hemoglobin 30.0 pg (25.0-35.0); Mean Corpuscular Volume 88 fL (80-100); Monocytes # (Auto) 1.1 Thou/mm3 (0.0-0.8); Monocytes % (Auto) 10 % (0-12); Neutrophils # (Auto) 8.7 Thou/mm3 (1.8-7.7); Neutrophils % (Auto) 78 % (37-80); Nucleated Red Blood Cell # 0.00 Thou/mm3 (0.00-0.00); Nucleated Red Blood Cell % 0 /100 WBC (0); Platelet Count 171 Thou/mm3 (140-440); RDW Standard Deviation 37.4 fL (36.4-46.3); Red Blood Count 3.50 Miln/mm3 (4.00-5.20); White Blood Count 11.1 Thou/mm3 (4.5-11.0)
--- NOTE | 2025-08-22 06:58 | EDNOTE_ITS ---
Upper Respiratory Inf. RME/HPI General Chief Complaint: Flu Like Symptoms Stated Complaint: CHEST DISCOMFORT, BODY ACHES, COUGH Time Seen by Provider: 08/22/25 04:21 Arrival date/time: 08/22/25 04:04 This is a 20-year-old female who came in in the emergency room with cough, nasal congestion, and shortness of breath for 3 days patient is 29 weeks 2 para 1 no vaginal bleeding, vaginal discharge, or abdominal pain. RME / HPI RME / HPI Narrative: 08/22/25 04:04 This is a case of 20-year-old female who came in in the emergency room due to chest pain cough nasal congestion and shortness of breath for 3 days patient is 29 weeks 2 para 1 no vaginal bleeding vaginal discharge abdominal pain Exam: Gravid uterus wheezing both lower lung field no crackles no rales no retraction no stridor Impression: Chest pain Related Data Home Medications ?Medication ?Instructions ?Recorded ?Confirmed ferrous sulfate 325 mg (65 mg 325 mg PO QDAY 09/16/23 10/21/23 iron) tablet Previous Rx's ?Medication ?Instructions ?Recorded amoxicillin 875 mg-potassium 1 tab PO Q12H #10 tabs clavulanate 125 mg tablet Allergies Allergy/AdvReac Type Severity Reaction Status Date / Time No Known Allergies Allergy Verified 03/08/25 16:55 Review of Systems Review of Systems Systems Reviewed: All systems reviewed, normal except as documented Past Medical History Past Medical History NEUROLOGIC: Negative Neurological Disorders CARDIAC: Negative Cardiac Disorders or Congestive Heart Failure RESPIRATORY: Negative Chronic Obstructive Pulmonary Disease (COPD) GASTROINTESTINAL: Negative Gastrointestinal Disorders GENITOURINARY: Negative Genitourinary Disorders or Renal Disease MUSCULOSKELETAL: Negative Musculoskeletal Disorders ENDOCRINE: Negative Endocrine Disorders, Diabetes Mellitus Type 1 or Diabetes Mellitus Type 2 HEMATOLOGIC: Negative Blood Disorders OTHER HISTORY: Negative Autoimmune Disease, Anesthesia Reactions, MRSA, Clostridium Difficile or Cancer Family History FAMILY HISTORY: Negative Family Cardiac Disorders Surgical History SURGICAL: Negative Endocrine Surgery, Ear Surgery, Abdominal Surgery, Joint Replacement, Neurologic Surgery, Mastectomy or Vasectomy Social History SMOKING STATUS: Never smoker SECOND HAND EXPOSURE: No ED Exam Narrative Physical exam: VITAL SIGNS: Reviewed. GENERAL APPEARANCE: Alert and interactive, follows commands, no acute distress, HEAD AND FACE: Non-traumatic. ENT: PERRL, conjuctiva pink and clear, eyelid no trauma, Mucous membrane moist. NECK: Supple, nontender, no nuchal rigidity. CHEST: No tenderness, no crepitus, no paradoxical movement, no retractions. LUNGS: Clear, well ventilated, symmetric, no rales, no wheezing, no rhonchi, no stridor, good breath sounds bilaterally. HEART: Regular rate, regular rhythm, no murmur, no gallops. ABDOMEN: Soft NEUROLOGICAL: Gross motor function intact sensory function intact, Appropriate for age. MUSCULOSKELETAL: low back nontender, full range of motion. EXTREMITIES: No redness no swelling no skin breakdown on bilateral foot and leg. Distal neurovascular status intact bilateral foot SKIN: Color pink, dry Course Quality Measures none Orders Category Date Time Status Bedside COVID-19 Antigen Test NOW Care 08/22/25 04:21 Completed Bedside Influenza A&B Antigen Test NOW Care 08/22/25 04:22 Completed EKG (ED ONLY) *Do not use* NOW Care 08/22/25 04:23 Completed EKG (ED Only) Stat Exams 08/22/25 04:23 Draft US OB >= 14 weeks Fetus Stat Exams 08/22/25 04:21 Completed ABO/RH Type Stat Lab 08/22/25 05:46 Completed Beta HCG,Quantitative Stat Lab 08/22/25 05:46 Completed CBC Stat Lab 08/22/25 05:46 Completed CMP [Comprehensive Metabolic Panel] Stat Lab 08/22/25 05:46 Completed Troponin I Stat Lab 08/22/25 05:46 Completed Urinalysis Stat Lab 08/22/25 05:11 Completed Acetaminophen Tab [Tylenol ES Tab] Med 08/22/25 07:38 Discontinued 1,000 mg PO X1 ONE Albuterol/Ipratr Rt Aniyah [Duoneb Rt Aniyah] Med 08/22/25 04:24 Discontinued 3 ml INH X1 ONE Vital Signs Vital signs: Vital Signs Temperature 100 F 08/22/25 04:11 Pulse Rate 127 H 08/22/25 04:11 Respiratory Rate 19 08/22/25 04:11 Blood Pressure 110/71 08/22/25 04:11 Pulse Oximetry (%) 98 08/22/25 04:11 Oxygen Delivery Method Room Air 08/22/25 04:11 PROCEDURES: EKG Interpretation #1: Date of EK08/22/25 Time of EK:45 Rate: 113 Interpretation: Interpreted by me (Sinus tachycardia with flipped T waves in aVF and lead III patient does have Q waves and lead II, aVL, III, aVF V5 V6) EKG Impression: No ectopy, Normal QRS and Normal intervals Upper Respiratory Infection MDM Narrative MDM Narrative:: US abdomen Findings: Viable intrauterine single fetus with single amniotic sac presentation cephalic Cardiac motion 138 bpm Placenta anterior grade 1 Umbilical cord insertion seen Amniotic fluid pocket 3.7 cm is the deepest pocket Cervix 2.7 cm Ovaries obscured by bowel gas Composite estimated gestational age based on BPD, head circumference, abdominal circumference, femur length is 27 weeks 6 days Estimated weight 1075 g. Survey of intracranial anatomy, spinal anatomy, abdominal anatomy, four-chamber heart performed with no abnormalities identified. Impression: Viable intrauterine gestation cephalic presentation. Spoke to patient at length. Patient is feeling better. I explained to her that she was positive for influenza A. I encouraged her to get some rest drink plenty of fluids. I told patient to use Tylenol for pain. I told patient to follow-up with her [employer]ER in 1 to 2 days. I also told her to follow-up with her primary doctor as well. Patient verbalized understanding and feels comfortable plan of care. Patient denies chest pain shortness of breath. Patient data External records reviewed:: [facility] previous records Clinical information provided by:: patient Social determinants that could affect healthcare access:: none Patient has the following chronic illnesses:: nonr How is presenting disease/condition affected by chronic disease/condition?: no chronic disease Evaluation data The following diagnostics were reviewed and interpreted by me:: lab results, radiology exam(s) and EKG tracing(s) Lab and/or radiology exams considered but not ordered:: see note Interpretation Summary: see note Medications / Prescriptions Medications or Prescriptions considered but not ordered:: none Medication administrations:: Medication Administration History Discontinued Medications Acetaminophen (Acetaminophen 500 Mg Tablet) 1,000 mg PO X1 ONE Stop: 08/22/25 07:39 Last Admin: 08/22/25 07:42 Dose: 1,000 mg Documented By: HOWARD Albuterol/Ipratropium (Albuterol/Ipratropium (Duoneb) Rt Aniyah 3 Ml Nebu) 3 ml INH X1 ONE Stop: 08/22/25 04:25 Last Admin: 08/22/25 04:54 Dose: 3 ml Documented By: DONNA see note Consultations Consultation(s) initiated? (list below): No Diagnosis Upper Respiratory Differential Diagnosis: upper respiratory infection, sinusitis, viral infection and influenza Most likely diagnosis given after review of the tests above:: see note Admission Indicated Admission indicated?: not indicated Admission Request Was there a request for admission?: No Disposition Plan Disposition Plan: Discharge Discharge Attestation Discharge Attestation: The patient and all family members were given an opportunity to ask questions and understood the discharge instructions. Discharge instructions specifically effects, indications for sooner follow up or return to the emergency department, and the expected course of current diagnosis. Patient condition: Stable Discharge Plan Plan Patient Disposition: HOME (Self Care) Patient condition on transfer: Stable Prescriptions/Referrals Prescriptions/Med Rec: No Action amoxicillin-pot clavulanate 875-125 mg tablet 1 tab PO Q12H Qty: 10 0RF ferrous sulfate 325 mg (65 mg iron) tablet 325 mg PO QDAY Patient Comments: TAKE 1 TABLET BY MOUTH TWICE A DAY Referrals: No Primary/Family,Physician [Primary Care Provider] - In 1 week Problem List Clinical Impression: Influenza A, 27 weeks gestation of Patient/Caregiver Discharge Instructions Discharge Activity: activity as tolerated Education Materials: Preg 3rd Trimester, ED Influenza (Adult) Additional Instructions: Follow up with primary provider in 1-2 days. Come back to ED if symptoms change or worsen. may take Tylenol for pain and fever Print Language: Azerbaijani Stand Alone Forms: Jessica Award Info., Patient Portal Info Letter PA/[employer]CIAL [employer]ING TE[employer]ER Supervising Physician PA/COMMERCIAL BAKING TEACHER Supervising Physician: marley
[2025-08-22 07:18] LABS: Alanine Aminotransferase 12 U/L (10-49); Albumin, Serum 4.0 gm/dL (3.5-5.0); Albumin/Globulin Ratio 1.4 (1.2-2.2); Alkaline Phosphatase 69 U/L (46-116); Anion Gap 10 (7-16); Aspartate Amino Transferase 26 U/L (0-34); BUN/Creatinine Ratio 10 Ratio (12-20); Beta HCG,Quantitative > 5000 mIU/mL (<5.0); Bilirubin,Total 0.3 mg/dL (0.3-1.2); Blood Urea Nitrogen < 5 mg/dL (9-23); Calcium 9.2 mg/dL (8.3-10.6); Calcium (Corrected) 9.2 mg/dL (8.5-10.1); Carbon Dioxide 23.7 mMol/L (20.0-31.0); Chloride 103 mMol/L (98-107); Creatinine (Component) 0.5 mg/dL (0.6-1.3); Estimated Creatinine Clearance 148.5 mL/min (>60); Globulin 2.9 gm/dL (2.3-3.5); Glucose 89 mg/dL (74-106); Osmolality,Calculated 270 (275-295); Potassium 3.8 mMol/L (3.4-5.1); Sodium 137 mMol/L (136-145); Total Protein 6.9 gm/dL (5.7-8.2); Troponin I < 0.002 ng/mL (0.0-0.045); eGFR > 60 See Note
[2025-08-22 07:42] VITALS: TEMP 37.7
[2025-08-22] MEDS: ACETAMINOPHEN 500 MG TABLET 1000 MG PO (07:42)
[2025-08-22 08:55] VITALS: BP 102/67; PULSE 122; RESP 19; TEMP 37.1; O2SAT 96
== END 2025-08-22 08:56 | disposition home or self-care (01) ==
PROVIDERS: Nurse Practitioner Family; Emergency Provider Emergency Medicine
DX: O99.513 Diseases of the respiratory system complicating pregnancy, third trimester (principal); J10.1 Influenza due to other identified influenza virus with other respiratory manifestations; O99.891 Other specified diseases and conditions complicating pregnancy; R00.0 Tachycardia, unspecified; Z3A.27 27 weeks gestation of pregnancy
CPT/HCPCS: 36415; 76805; 80053; 81001; 84484; 84702; 85025; 86900; 86901; 87502; 87635; 93005; 94640; 99283; A9270